=== PATIENT | male | born 1970 | race Caucasian/White ===

== ENCOUNTER 2016-11-15 15:42 | Emergency (ER) | payer OTHER, MEDICAID ==
[~2016-11-15] VITALS: Ht 182.9 cm; Wt 80.0 kg
[~2016-11-15 15:42] MED LIST: FLX20C PO; GABA800T2 PO; GBPN600T PO; LSNP10T PO
--- OUTSIDE RECORDS SUMMARY | 2016-11-15 15:47 | XMS REPORT | Continuity of Care Document ---
Author Author [facility] Address Unknown Phone Unavailable Allergies Active Description Code Type Severity Reaction Onset Reported/Identified Relationship to Patient Clinical Status Yes No Known Allergies [id number] Drug Allergy Unknown N/A 05/15/2016 Medications Problems Date Dx Coded Attending Type Code Diagnosis Diagnosed By 05/18/2016 GIANLUCA WILCOX MD, Ot F10.10 ALCOHOL ABUSE, UNCOMPLICATED 05/18/2016 GIANLUCA WILCOX MD, Ot M54.5 LOW BACK PAIN 05/18/2016 GIANLUCA WILCOX MD, Ot W10.9XXA FALL (ON) (FROM) UNSPECIFIED STAIRS AND 05/18/2016 GIANLUCA WILCOX MD, Ot Y92.[address] IN [facility] NON-INSTITUT (PRIVATE ) 05/18/2016 GIANLUCA WILCOX MD, Ot Z91.81 HISTORY OF FALLING 05/23/2016 GIANLUCA WILCOX MD Ot F10.10 ALCOHOL ABUSE, UNCOMPLICATED 05/23/2016 GIANLUCA WILCOX MD, Ot M54.5 LOW BACK PAIN 05/23/2016 GIANLUCA WILCOX MD, Ot W10.9XXA FALL (ON) (FROM) UNSPECIFIED STAIRS AND 05/23/2016 GIANLUCA WILCOX MD Ot Y92.[address] IN [facility] NON-INSTITUT (PRIVATE ) 05/23/2016 GIANLUCA WILCOX MD, Ot Z91.81 HISTORY OF FALLING 05/23/2016 GIANLUCA WILCOX MD, Ot F10.10 ALCOHOL ABUSE, UNCOMPLICATED 05/23/2016 GIANLUCA WILCOX MD, Ot M54.5 LOW BACK PAIN 05/23/2016 GIANLUCA WILCOX MD, Ot W10.9XXA FALL (ON) (FROM) UNSPECIFIED STAIRS AND 05/23/2016 GIANLUCA WILCOX MD, Ot Y92.[address] IN [facility] NON-INSTITUT (PRIVATE ) 05/23/2016 GIANLUCA WILCOX MD, Ot Z91.81 HISTORY OF FALLING 05/30/2016 GIANLUCA WILCOX MD, Ot F10.10 ALCOHOL ABUSE, UNCOMPLICATED 05/30/2016 GIANLUCA WILCOX MD, Ot M54.5 LOW BACK PAIN 05/30/2016 GIANLUCA WILCOX MD, Ot W10.9XXA FALL (ON) (FROM) UNSPECIFIED STAIRS AND 05/30/2016 GIANLUCA WILCOX MD, Ot Y92.[address] IN [facility] NON-INSTITUT (PRIVATE ) 05/30/2016 GIANLUCA WILCOX MD, Ot Z91.81 HISTORY OF FALLING 05/30/2016 GIANLUCA WILCOX MD, Ot F10.10 ALCOHOL ABUSE, UNCOMPLICATED 05/30/2016 GIANLUCA WILCOX MD, Ot M54.5 LOW BACK PAIN 05/30/2016 GIANLUCA WILCOX MD, Ot W10.9XXA FALL (ON) (FROM) UNSPECIFIED STAIRS AND 05/30/2016 GIANLUCA WILCOX MD, Ot Y92.[address] IN [facility] NON-INSTITUT (PRIVATE ) 05/30/2016 GIANLUCA WILCOX MD, Ot Z91.81 HISTORY OF FALLING Procedures Results Test Result Range Complete blood count (CBC) with automated white blood cell (WBC) differential - 05/15/16 21:20 Blood automated leukocyte count 7.35 4.0 -11.0 Erythrocytes 4.40 4.50-5.50 12.0-16.0;g/dL 15.9 13.5-17.0 Hematocrit 43.70 39.00-50.00 Automated erythrocyte mean corpuscular volume 99 80-100 Mean corpuscular hemoglobin (MCH) determination 36.1 26.0-34.0 Automated erythrocyte mean corpuscular hemoglobin concentration measurement ( mass/volume) 36.4 31.0-37.0 Erythrocyte distribution width 12.2 11.8 -15.6 Automated blood platelet count 292 150- 450 Automated blood platelet mean volume measurement 9.4 6.0-9.5 Automated neutrophil percentage 61 51- 67 Lymphocytes/100 leukocytes 25 20-46 Automated monocyte percentage 12 3-11 Eosinophil count auto 1 0-4 Automated basophil percentage 1 0-2 Automated blood neutrophil count 4.5 Blood lymphocytes count (number/volume) 1.9 Automated blood monocyte count 0.9 Blood absolute eosinophil count 0.1 Basophils 0.1 Comprehensive metabolic panel - 05/15/16 21:20 Sodium measurement 105 70-110 Carbon dioxide measurement 23 22-29 Serum or plasma anion gap 19.0 3-15 BLOOD UREA NITROGEN 14 7-18 CREATININE SERUM 2.10 0.8-1.5 Brucella species antibody panel (IgG, IgM) 7 10-20 Estimated glomerular filtration rate (GFR) 41.5 Estimated glomerular filtration rate (GFR) non- 34.3 OSMOLALITY,CALCULATED 262 280-300 CALCIUM 8.1 8.8-10.8 Calculated ionized calcium measurement 3.3 3.8-4.6 BILIRUBIN,TOTAL 0.9 0.1-1.0 Serum or plasma alkaline phosphatase measurement 120 38-126 ASPARTATE AMINO TRANSFERASE 59 15-37 ALANINE AMINOTRANSFERASE 38 30-65 Serum or plasma total protein measurement 7.9 6.4-8.5 Serum or plasma albumin measurement 3.7 3.4-5.0 Serum or plasma albumin/globulin mass ratio 0.880 1.1-1.8 Lipase measurement - 05/15/16 21:20 Lipase measurement 121 23-300 ALCOHOL - 05/15/16 21:20 ALCOHOL 123.0 10-80 Encounters ACCT No. Visit Date/Time Discharge Status Pt. Type Provider Facility Loc./Unit Complaint [id number] 03/14/2013 03:40:00 2012 23:59:59 CLS Outpatient [id number] 05/15/2016 19:57:00 ACT Emergency JERI CHANEL, GIANLUCA As[facility] ED [id number] 09/20/2015 21:22:00 ACT Outpatient [facility] EMS
--- OUTSIDE RECORDS SUMMARY | 2016-11-15 15:47 | XMS REPORT | Continuity of Care Document ---
Author Author [facility] Address Unknown Phone Unavailable Allergies Active Description Code Type Severity Reaction Onset Reported/Identified Relationship to Patient Clinical Status Yes No Known Allergies [id number] Drug Allergy Unknown N/A 05/15/2016 Medications Problems Date Dx Coded Attending Type Code Diagnosis Diagnosed By 05/18/2016 GIANLUCA WILCOX MD, Ot F10.10 ALCOHOL ABUSE, UNCOMPLICATED 05/18/2016 GIANLUCA WILCOX MD, Ot M54.5 LOW BACK PAIN 05/18/2016 GIANLUCA WILCOX MD, Ot W10.9XXA FALL (ON) (FROM) UNSPECIFIED STAIRS AND 05/18/2016 GIANLUCA WILCOX MD, Ot Y92.[address] IN [facility] NON-INSTITUT (PRIVATE ) 05/18/2016 GIANLUCA WILCOX MD, Ot Z91.81 HISTORY OF FALLING 05/23/2016 GIANLUCA WILCOX MD Ot F10.10 ALCOHOL ABUSE, UNCOMPLICATED 05/23/2016 GIANLUCA WILCOX MD, Ot M54.5 LOW BACK PAIN 05/23/2016 GIANLUCA WILCOX MD, Ot W10.9XXA FALL (ON) (FROM) UNSPECIFIED STAIRS AND 05/23/2016 GIANLUCA WILCOX MD Ot Y92.[address] IN [facility] NON-INSTITUT (PRIVATE ) 05/23/2016 GIANLUCA WILCOX MD, Ot Z91.81 HISTORY OF FALLING 05/23/2016 GIANLUCA WILCOX MD, Ot F10.10 ALCOHOL ABUSE, UNCOMPLICATED 05/23/2016 GIANLUCA WILCOX MD, Ot M54.5 LOW BACK PAIN 05/23/2016 GIANLUCA WILCOX MD, Ot W10.9XXA FALL (ON) (FROM) UNSPECIFIED STAIRS AND 05/23/2016 GIANLUCA WILCOX MD, Ot Y92.[address] IN [facility] NON-INSTIT[facility] (PRIVATE ) 05/23/2016 GIANLUCA WILCOX MD, Ot Z91.81 HISTORY OF FALLING 05/30/2016 GIANLUCA WILCOX MD, Ot F10.10 ALCOHOL ABUSE, UNCOMPLICATED 05/30/2016 GIANLUCA WILCOX MD, Ot M54.5 LOW BACK PAIN 05/30/2016 GIANLUCA WILCOX MD, Ot W10.9XXA FALL (ON) (FROM) UNSPECIFIED STAIRS AND 05/30/2016 GIANLUCA WILCOX MD, Ot Y92.[address] IN [facility] NON-INSTITUT (PRIVATE ) 05/30/2016 GIANLUCA WILCOX MD, Ot Z91.81 HISTORY OF FALLING 05/30/2016 GIANLUCA WILCOX MD, Ot F10.10 ALCOHOL ABUSE, UNCOMPLICATED 05/30/2016 GIANLUCA WILCOX MD, Ot M54.5 LOW BACK PAIN 05/30/2016 GIANLUCA WILCOX MD, Ot W10.9XXA FALL (ON) (FROM) UNSPECIFIED STAIRS AND 05/30/2016 GIANLUCA WILCOX MD, Ot Y92.[address] IN [facility] NON-INSTITUT (PRIVATE ) 05/30/2016 GIANLUCA WILCOX MD, [...] Status Pt. Type Provider Facility Loc./Unit Complaint [id number] 03/14/2013 03:40:00 2012 23:59:59 CLS Outpatient [id number] 05/15/2016 19:57:00 ACT Emergency JERI CHANEL, GIANLUCA As[facility] ED [id number] 09/20/2015 21:22:00 ACT Outpatient [facility] EMS
[2016-11-15] MEDS ORDERED: AMOX500C5 PO (16:52)
[2016-11-15 16:58] VITALS: BP 153/113
== END 2016-11-15 17:00 | disposition home or self-care (01) ==
LOC: ED 15:43
DX: F31.9 Bipolar disorder, unspecified (principal); R45.1 Restlessness and agitation; K08.89 Other specified disorders of teeth and supporting structures; Z91.120 Patient's intentional underdosing of medication regimen due to financial hardship
CPT/HCPCS: 99281; 99283